=== PATIENT | female | born 1995 | race Caucasian/White ===

== ENCOUNTER 2025-01-29 01:34 | Emergency (ER) | payer OTHER ==
[~2025-01-29] VITALS: Ht 160 cm; Wt 64.0 kg
[2025-01-29 01:41] VITALS: O2SAT 99
[2025-01-29 01:43] VITALS: BP 120/80; PULSE 83; RESP 16; TEMP 36.8; O2SAT 99
== END 2025-01-29 04:05 | disposition left against medical advice (07) ==
LOC: ER 02:00
DX: M25.572 Pain in left ankle and joints of left foot (principal); I10 Essential (primary) hypertension; Z53.21 Procedure and treatment not carried out due to patient leaving prior to being seen by health care provider; X58.XXXA Exposure to other specified factors, initial encounter; Y93.89 Activity, other specified; Y92.89 Other specified places as the place of occurrence of the external cause; Y99.8 Other external cause status
CPT/HCPCS: 73610; Z7610